=== PATIENT | female | born 1960 | race Caucasian/White ===

== ENCOUNTER 2018-10-29 11:40 | Inpatient (IN) | payer OTHER ==
--- NOTE | 2018-10-29 12:29 | HP ---
CHIEF COMPLAINT: Abdominal pain. 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 She did eat normally last night, but felt tired. She has not had previous episodes of like illness. She denies blood per rectum, melanotic stools. She did vomit at least twice, but there was no blood. There are no significant GI problems. She had a colonoscopy approximately 10 years ago which was unremarkable. PAST MEDICAL HISTORY: 1. Hypertension. 2. Chronic low back pain. 3. History of peritonsillar abscess. 4. Pleurisy. PAST SURGICAL HISTORY: 1. section x2. MEDICATIONS: 1. Estradiol. 2. Amlodipine. 3. Simvastatin. 4. Estazolam p.r.n. at bedtime. ALLERGIES: NO KNOWN DRUG ALLERGIES. FAMILY HISTORY: Positive for diverticular disease. There is no history of inflammatory bowel disease to her knowledge. No history of anesthesia complications. REVIEW OF SYSTEMS: There has been on weight loss, no change in her bowel habits, no cough, chest pain or shortness of breath. She has specifically had no urinary symptoms, no blood in the urine or polyuria. PHYSICAL EXAMINATION: GENERAL: The patient is awake, alert, cooperative, in mild distress. VITAL SIGNS: The patient is currently afebrile, normotensive in Dr. Khan's office. Pulse 80. Room air O2 saturation was 97%. HEENT: Sclerae nonicteric. Mucous membranes moist. NECK: Without adenopathy. CHEST: Equal breath sounds anteriorly. HEART: Regular rate and rhythm. ABDOMEN: Soft diffusely. There is tenderness in the right lower quadrant with some guarding. PELVIC/RECTAL: Deferred. EXTREMITIES: Without cyanosis, clubbing. LABORATORY: The only lab done was a white blood cell count which revealed a white count of 13,000 with 86.8 neutrophils. Hemoglobin 12.9, platelet count 212,000. Electrolytes are pending. Urinalysis will be performed, but surgery will not be delayed on this. ASSESSMENT: 1. Right lower quadrant abdominal pain. 2. Abnormal CT scan which reveals both acute appendicitis and a right ureteral stone and actually a small hernia in the lower abdomen. PLAN: The risks, benefits and alternatives to appendectomy versus antibiotic therapy and the need to attempt passage of the stone on her own along with possibility of just antibiotic therapy for appendicitis, the patient wishes to proceed with appendectomy laparoscopically. That will be attempted as soon as she is admitted. She will be given a preoperative dose of Mefoxin. We will continue her on this unless other findings are identified. #[id number] [facility]
--- NOTE | 2018-10-29 12:34 | CT ---
EXAM DESCRIPTION: Abdomen/Pelvis w/o Contrast: Computed Tomography. CLINICAL HISTORY: 58 years Female GEN ABD PN COMPARISON: None. TECHNIQUE: Spiral-axial scans 2.5 x 2.5 mm intervals through the abdomen and pelvis without oral or IV contrast. Coronal and sagittal 2.0 mm reconstructions. Total Exam DLP: 927.12 mGy-cm. This exam was performed according to our departmental CT dose-optimization program which includes automated exposure control, adjustment of the mA and/or kV according to patient size and/or use of iterative reconstruction technique; to reduce radiation dose to as low as reasonably achievable (ALARA). FINDINGS: Lung bases and pleura: Negative. Liver, stomach, spleen, and adrenal glands: Calcifications posterior inferior capsule of the right lobe. Small calcification spleen. Stomach and adrenal glands negative. Pancreas, Gallbladder, and Ducts: Surgical clips gallbladder fossa no fluid. Duct negative. Pancreas unremarkable. Kidneys and Ureters: 3.3 mm stone in the inferior collecting system of the right kidney without obstruction or hydronephrosis. 1.5 mm stone in the distal right ureter just proximal to the ureterovesical junction. Left kidney and left ureter negative. No radiodense stones in the urinary bladder. Terminal Ileum/Cecum: Normal caliber of the terminal ileum and cecum. Appendix is thickened with decreased definition of the wall and fat interface and increased density in the lumen. 3 to 4 mm appendicolith in the distal appendix. Proximal appendix 9.4 mm in diameter. Thickening of the pericolic gutter fascia and fatty stranding. No soft tissue mass. No fluid collection or abscess. Mesentery: No fatty stranding and fascial thickening around the inflamed appendix has described. No free air or ascites or fluid in the cul-de-sac. Aorta: Atherosclerotic calcification aorta distally and bilateral common iliacs with minimal ectasia. Small Bowel: Normal caliber with no air-fluid levels or distention. Colon: Distention of the distal descending colon and sigmoid by fecal matter. Diverticula also in this segment with no complications. Scattered diverticula in the remainder of the colon proximal and mid segments. Pelvic Organs: Uterus in normal position. Bilateral ovaries visualized with no calcifications. Bilateral tubal surgical material. Spine and Bony Pelvis: Minimal bilateral upper coverage of femoral heads by hypertrophy of the acetabular facets. Abdominal Wall/Back Soft Tissues: Hernia defect to the right of midline at the level of the mid pelvis with fascial defect measuring 1.5 x 1.5 cm, axial series 2, image 119 and sagittal series 601, image 103. Mesentery in hernia extending into the anterior adipose tissue and inferiorly containing fat only with minimal density. No soft tissue mass or fluid. No bowel involvement. IMPRESSION: 1. Inflammation of the appendix with enlargement wall thickening and increase with. Small appendicolith in the distal appendix. Adjacent fatty stranding and fascial thickening. No soft tissue mass abscess or fluid collection. 2. 3.3 mm nonobstructing stone in the inferior collecting system of the right kidney. 1.5 mm stone in the distal right ureter but no definite hydroureter. Left kidney and ureter are unremarkable. 3. Hernia in the anterior abdominal wall fascia to the right of midline, at the level of the mid pelvis. Defect measuring 1.5 x 1.5 cm. Only mesentery in the hernia, no fluid or bowel. 4. Diffuse diverticula in the colon with no inflammatory changes. Electronically signed by: Adan Woods MD 10/29/2018 12:30 PM CDT
[2018-10-29] MEDS ORDERED: METOCLOPRAMIDE HCL INJ 10 MG/2 ML VIAL IV ONE (12:42)
[2018-10-29] MEDS ORDERED: cefOXitin SODIUM 2 GM INJ IVPB ONE ×2 (12:48→19:05)
[2018-10-29] MEDS ORDERED: SODIUM CHL 0.9% 50ML MIN-BAG+ 50 ML IVPB ONE ×2 (12:48→19:04)
[2018-10-29] MEDS ORDERED: MIDAZOLAM INJ 2 MG/2 ML VIAL ONE (12:58)
[2018-10-29] MEDS ORDERED: SUGAMMADEX SODIUM 200 MG/2 ML VIAL IV ONE (12:58)
[2018-10-29] MEDS ORDERED: fentaNYL CITRATE INJ 50 MCG/ML AMP ONE (12:58)
[2018-10-29] MEDS ORDERED: ROCURONIUM BROMIDE 10 MG/ML VIAL ONE (12:58)
[2018-10-29] MEDS ORDERED: ACETAMINOPHEN IV 1000MG 100 ML ONE (12:59)
[2018-10-29] MEDS ORDERED: BUPIVACAINE 0.25% W/EPI 50 ML VIAL INJ ONE (12:59)
[2018-10-29] MEDS ORDERED: SCOPOLAMINE PATCH 1.5MG 1 EA TD ONE (13:00)
[2018-10-29] MEDS: cefOXitin SODIUM 2 GM in SODIUM CHL 0.9% 50ML MIN-BAG+ 50 ML IVPB SCH ×2 (13:09→21:19)
[2018-10-29] MEDS: LACTATED RINGERS 1,000 ML IVS PRN ×2 (13:09→17:16)
[2018-10-29] MEDS ORDERED: SUCCINYLCHOLINE CHLORIDE 200 MG/10 ML VIAL ONE (13:31)
[2018-10-29] MEDS ORDERED: ELECTROLYTE-A 1,000 ML IVS ONE (14:26)
[2018-10-29] MEDS ORDERED: HYDROmorphone HCL INJ 2 MG/ML VIAL ONE (14:26)
[2018-10-29] MEDS ORDERED: HYDROmorphone HCL INJ 2 MG/ML VIAL IV PRN (15:29)
[2018-10-29] MEDS ORDERED: ONDANSETRON INJ 4 MG/2 ML VIAL IV PRN (15:29)
[2018-10-29] MEDS ORDERED: PANTOPRAZOLE SODIUM IV 40 MG VIAL IV SCH (15:30)
[2018-10-29] MEDS ORDERED: metroNIDAZOLE IV PREMIX 500MG 100 ML IVPB ONE ×2 (16:17→19:05)
[2018-10-29] MEDS: metroNIDAZOLE IV PREMIX 500MG 500 MG in PREMIX BAG 1 BAG IVPB SCH ×2 (16:23→23:03)
--- NOTE | 2018-10-29 19:59 | OP ---
DATE OF PROCEDURE: 10/29/18 PREOPERATIVE DIAGNOSIS: 1. Right lower quadrant abdominal pain, leukocytosis and abnormal CT scan suspicious for appendicitis. POSTOPERATIVE DIAGNOSIS: 1. Right lower quadrant abdominal pain, leukocytosis and abnormal CT scan suspicious for appendicitis. 2. Acute appendicitis. SURGICAL PROCEDURE: 1. Laparoscopy and appendectomy. SURGEON: Rene Pereyra M.D. ANESTHESIA: Local infiltration of 0.25% Marcaine with Epinephrine and general endotracheal anesthesia. INDICATION FOR SURGERY: The patient is a 58 year-old female who developed abdominal pain she awoke with this morning. She has had nausea and vomited twice. She was seen by Dr. Khan and found a white count of 13,000. Obtained a CT scan which revealed the inflammatory changes to the appendix and also to a right kidney stone. She was brought to the Surgical Suite today for laparoscopy and appendectomy after the risks, benefits, and alternatives to the procedure were discussed with the patient and her . FINDINGS AT TIME OF PROCEDURE: The distal appendix was quite edematous with some exudate. Also a question of some gangrenous changes. It was not inspected. No other obvious pathology was identified. There were adhesions to the right side from the colon to the anterior abdominal wall. DESCRIPTION OF PROCEDURE: After adequate general endotracheal anesthesia was obtained the patient was placed in the supine position and prepped and draped in the usual sterile manner. A surgical time out was taken. At this point, a small incision was made in the infraumbilical area first with infiltration of anesthesia and then with a sharp knife dissection was carried down through the skin and subcutaneous tissue using blunt dissection. Traction sutures were placed on either side of the midline in the fascia. The fascia was opened sharply. Using blunt dissection the peritoneum was opened. Jelani trocar was introduced under direct vision into the abdominal cavity and fixed in place with a 20 mL balloon. CO2 was then insufflated until a pressure of 12 mmHg was reached and the abdomen was tympanitic in all 4 quadrants. When this was done, the laparoscope was introduced and the abdomen was inspected with the previously noted findings. The patient was then placed in the Trendelenburg position. A suprapubic port was placed under direct vision in the usual manner. The right lower quadrant was inspected and the appendix was identified. At this point, the left lower quadrant port was placed under direct vision in the usual manner. The patient was then turned to the left side and remained in Trendelenburg. The appendix was dissected free from the anterior abdominal wall and elevated. The mesoappendix was identified and the mesoappendix at the base was divided using blunt dissection The Endo-VIRY was used to divide first the base of the appendix and then the mesoappendix. This required 3 total firings. There was some pulsatile bleeding afterwards which was clamped with a single application of a single clip. At this point, a significant amount of irrigation and aspiration of the right lower quadrant was obtained. As many clots as possible were removed. No other active bleeding was identified. At this point, the pelvis was aspirated as much as possible. The appendix had been placed in an EndoCatch bag and removed from the left lower quadrant port site in the usual manner after transection. When we were completed, at this point the left lower quadrant port was removed and the trocar site was closed with 2 simple sutures of #0 Vicryl placed using the EndoClose device. When these were tightened and tied there was no active bleeding noted. The suprapubic port was removed. At this point, the CO2, the laparoscope and the infraumbilical port were removed. The infraumbilical port site fascia was approximated with a single [id number] suture of 0 Vicryl. Subcutaneous tissue was irrigated with saline. Skin edges were loosely approximated with a skin stapler. Sterile dressings were applied. The patient was awakened and taken to the Recovery Room in stable condition with a Webster catheter in place. Estimated blood loss was approximately 250 mL. All sponge, needle and instrument counts were correct. #[id number] [facility]
[2018-10-30] MEDS: LACTATED RINGERS 1,000 ML IVS PRN (00:41)
[2018-10-30] MEDS ORDERED: SODIUM CHL 0.9% 50ML MIN-BAG+ 50 ML IVPB ONE (04:26)
[2018-10-30] MEDS ORDERED: cefOXitin SODIUM 2 GM INJ IVPB ONE (04:26)
[2018-10-30] MEDS: cefOXitin SODIUM 2 GM in SODIUM CHL 0.9% 50ML MIN-BAG+ 50 ML IVPB SCH (04:48)
[2018-10-30 06:14] VITALS: O2SAT 96
[2018-10-30] MEDS ORDERED: metroNIDAZOLE IV PREMIX 500MG 100 ML IVPB ONE (08:07)
[2018-10-30] MEDS: metroNIDAZOLE IV PREMIX 500MG 500 MG in PREMIX BAG 1 BAG IVPB SCH (08:25)
[2018-10-30] MEDS ORDERED: raNITIdine HCL INJ 25 MG/ML VIAL IV ONE (10:00)
[2018-10-30] MEDS ORDERED: DEXAMETHASONE INJ 10 MG/ML VIAL IV ONE (10:00)
[2018-10-30] MEDS ORDERED: PROPOFOL 200 MG/20 ML VIAL IV ONE (10:00)
[2018-10-30] MEDS ORDERED: ONDANSETRON INJ 4 MG/2 ML VIAL IV ONE (10:00)
[2018-10-30] MEDS ORDERED: IBUPROFEN 200 MG TAB PO PRN (11:10)
[2018-10-30] MEDS ORDERED: HYDROcodone 5MG/APAP 325MG 1 EA TAB PO ONE (11:18)
--- NOTE | 2018-10-30 15:41 | DS ---
FINAL DIAGNOSIS: 1. Acute appendicitis pending pathology report. 2. Right renal and ureteral stone. 3. Hypertension. SURGICAL PROCEDURE: The patient underwent laparoscopy and appendectomy on 10/29/18. 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 She did eat normally last night, but felt tired. She has not had previous episodes of like illness. She denies blood per rectum, melanotic stools. She did vomit at least twice, but there was no blood. There are no significant GI problems. She had a colonoscopy approximately 10 years ago which was unremarkable. LABORATORY: At the time of the first postoperative day her white count was 9,000 with 85% neutrophils. Hemoglobin 10.8. She had 167,000 platelets. Potassium was 4.2, creatinine 0.62 and normal liver function tests. Urinalysis revealed urine ketones but essentially no red cells or white cells. HOSPITAL COURSE: The patient was seen by Dr. Khan who ordered a CT scan which revealed acute appendicitis plus the stones. She was admitted with right lower quadrant abdominal pain, a white count of 13,[address] scan. After the risks, benefits, and alternatives to the procedure were discussed with the patient and her , she was given IV Mefoxin, Reglan and taken to the Surgical Suite where she underwent the laparoscopic appendectomy. There was a little more bleeding than normal but the patient tolerated the anesthesia and surgery well. By the first postoperative morning she was tolerating chest liquids. She had taken no pain medicine since 7:00 the night before. She was afebrile and her lab had normalized essentially. At that time she was discharged home. Her Webster catheter was discharged first thing Thursday morning and she had urinated prior to discharge. Condition on discharge was improved. Prognosis is excellent pending pathology report. DISPOSITION: The patient is to followup in my office in approximately 10 days. She was discharged on a bland diet and told to push fluids. She was told she can ambulate but do no lifting or exercise. She was told she could shower but no tub bath and told most importantly to call me if she has questions or problems prior to her appointed visit. She is also to call my office for an appointment which will be in approximately 10 days. She is discharged with 2 prescriptions for Augmentin 875, #12, 1 p.o. every 12 hours and then Flagyl 250, #18, 1 p.o. every 8 hours. #[id number] [facility]
[2018-10-30 16:01] VITALS: BP 124/74; TEMP 98
== END 2018-10-30 12:00 | disposition home or self-care (01) | DRG 342 ==
LOC: RAD 11:40 → MS 12:28
PROVIDERS: ADMIT Surgery; ATTEND Surgery
PROC: 0DTJ4ZZ Resection of Appendix, Percutaneous Endoscopic Approach (ICD-10-PCS; principal; 2018-10-29 13:31)
DX: K35.80 Unspecified acute appendicitis (principal); N20.2 Calculus of kidney with calculus of ureter; K66.0 Peritoneal adhesions (postprocedural) (postinfection); I10 Essential (primary) hypertension

== ENCOUNTER → 2019-08-19 | Outpatient (CLI) | payer OTHER ==
--- NOTE | 2019-08-19 13:47 | CT ---
EXAM DESCRIPTION: Abdoment/Pelvis w/o Contrast CLINICAL HISTORY: 59 years Female, HEMATURIA TECHNIQUE: This exam was performed according to our departmental dose-optimization program, which includes automated exposure control, adjustment of the mA and/or kV according to patient size and/or use of iterative reconstruction technique. COMPARISON: October 29, 2018 FINDINGS: Evaluation limited by lack of intravenous contrast. Visualized lung bases are grossly unremarkable. Surgical clips along the posterior margin of the right hepatic lobe. Cholecystectomy. Contours of the liver, spleen, pancreas and adrenal glands are unremarkable. Calcified granulomas present within the spleen. Nonobstructing right nephrolithiasis. The largest right renal calculus measures 4 mm. No hydronephrosis. No obstructing ureteral stone. Right pelvic phlebolith. Unremarkable bladder. No adnexal mass. Similar ventral pelvic midline fat-containing hernia. Scattered colonic diverticula without focal inflammatory change. No evidence of bowel obstruction. No findings to suggest appendicitis. No adenopathy. No focal fluid collection. No free air. Normal caliber abdominal aorta. Moderate diffuse atherosclerotic disease. No acute or suspicious osseous abnormality. Scattered degenerative changes present. IMPRESSION: Nonobstructing right nephrolithiasis. No hydronephrosis or obstructing ureteral stone. Electronically signed by: Berlin Cochran MD 08/19/2019 1:45 PM [employer]
== END ==
LOC: CT 13:17
PROVIDERS: ATTEND Nurse Practitioner Family
DX: N20.0 Calculus of kidney (principal)

== ENCOUNTER 2020-05-25 05:16 | Day surgery (SDC) | payer OTHER ==
[2020-05-25] MEDS ORDERED: DEXAMETHASONE INJ 10 MG/ML VIAL IV ONE (05:17)
[2020-05-25] MEDS ORDERED: LIDOCAINE 1% 10 ML VIAL INJ ONE (05:17)
[2020-05-25] MEDS ORDERED: PROPOFOL 200 MG/20 ML VIAL IV ONE (05:17)
[2020-05-25] MEDS ORDERED: ONDANSETRON ODT 8 MG TAB PO ONE (05:17)
[2020-05-25] MEDS ORDERED: LACTATED RINGERS 1,000 ML ONE (06:36)
[2020-05-25] MEDS ORDERED: KETAMINE HCL 100 MG/ML VIAL ONE (07:40)
[2020-05-25] MEDS ORDERED: MIDAZOLAM INJ 2 MG/2 ML VIAL ONE (07:40)
[2020-05-25] MEDS ORDERED: ONDANSETRON ODT 8 MG TAB ONE (07:43)
--- NOTE | 2020-05-25 09:03 | OP ---
DATE OF PROCEDURE: 05/25/20 PREOPERATIVE DIAGNOSIS: 1. Screening colonoscopy. 2. Hemorrhoids. POSTOPERATIVE DIAGNOSIS: 1. Screening colonoscopy. 2. Hemorrhoids. PROCEDURE: 1. Complete colonoscopy with single polyp excision at 15 cm, 2.5 mm polyp. 2. Hemorrhoid banding x1. SURGEON: Tank Curry MD ANESTHESIA: General. FINDINGS: Normal colon but for one polyp and primarily external hemorrhoids with one internal hemorrhoid. PLAN: Discharge. INDICATION: As stated. PROCEDURE: General anesthesia was induced in the lateral position. Digital rectal exam was normal. External hemorrhoids were seen. The scope was inserted without difficulty. A little twist in the sigmoid, but passed routinely to the cecum as identified by the appendiceal orifice and ileocecal valve. Upon withdrawal, there was a good prep, good exam. No polyps or abnormal mucosa was seen, but for one 3 mm polyp at about 15 cm. This was excised, no bleeding. Retroflexion showed small internal hemorrhoids. I think her hemorrhoid problem is primarily external. When the scope was withdrawn, we used the anal speculum and identified small internal hemorrhoids. None were relatively large. The largest one was banded proximal to the dentate line. Again, most of her hemorrhoids are purely external. We will discuss that with her. She was then awakened and taken to Recovery for discharge. #[id number] cc: MD YOLY Armenta
[2020-05-25 09:42] VITALS: TEMP 98.1
[2020-05-25 09:43] VITALS: BP 152/82; O2SAT 99
== END 2020-05-25 09:35 | disposition home or self-care (01) ==
LOC: AMB 05:16
PROVIDERS: ATTEND Surgery
DX: Z12.11 Encounter for screening for malignant neoplasm of colon (principal); K63.5 Polyp of colon; K64.4 Residual hemorrhoidal skin tags; K64.8 Other hemorrhoids; I10 Essential (primary) hypertension; F41.9 Anxiety disorder, unspecified; E78.00 Pure hypercholesterolemia, unspecified; Z85.820 Personal history of malignant melanoma of skin; Z79.899 Other long term (current) drug therapy
CPT/HCPCS: 00812; 45380; 46221; J1100; J2250; J3490; J7120